=== PATIENT | male | born 1950 | race Caucasian/White ===

== ENCOUNTER 2025-03-21 14:33 | Inpatient (IN) ==
[2025-03-21 15:21] LABS: Hematocrit (blood only) 46.0 % (42.0-52.0); Hemoglobin 15.2 g/dL (14.0-18.0); Immature Granulocytes # (auto) 0.02 K/uL (0.01-0.20); Immature Granulocytes % (auto) 0.2 %; Mean Corpuscular Hemoglobin 29.5 pg (25.0-34.0); Mean Corpuscular Volume 89.1 fL (80.0-100.0); Platelet Count 245 K/uL (130-400); RDW Standard Deviation 45.8 fL (36.4-46.3); Red Blood Count 5.16 M/uL (4.70-6.10); White Blood Count 11.26 K/ul (4.8-10.8)
[2025-03-21 15:38] LABS: Alanine Aminotransferase 22.0 U/L (7-52); Albumin Globulin Ratio 1.5 (0.9-2); Albumin Level 3.9 gm/dl (3.4-5.0); Alkaline Phosphatase 90.0 U/L (34-104); Anion Gap 5.0 (3-11); Bilirubin,Total 1.4 mg/dl (0.2-1.0); Blood Urea Nitrogen 13.0 mg/dl (6-23); Calcium 10.0 mg/dl (8.6-10.3); Carbon Dioxide 31.0 mmol/L (21-32); Chloride 105.0 mmol/L (98-107); Creatinine Clr Calc Pharmacy 81.1 ml/min; Globulin 2.6 gm/dl (2.5-4.0); Glucose 159.0 mg/dl (70-99(Fasting)); Potassium 3.8 mmol/L (3.5-5.1); Sodium 141.0 mmol/L (136-145); Total Protein 6.5 gm/dl (6.0-8.3)
--- NOTE | 2025-03-21 15:45 | Emergency Department Note ---
Impression & Plan DVT of lower limb, acute ED Provider Note NAME: KRISTINA BERMAN AGE: 74 SEX: M : 1950 ARRIVES VIA: Walk-In INFORMANT: Patient, ED PROVIDER(S): Gucci Moore MD CHIEF COMPLAINT: Outpatient referral, DVT MEDICAL DECISION MAKING: Patient presents due to concern for DVT as an outpatient. IV was established and blood work was obtained. Patient's blood work shows a white count of 11 with a normal hemoglobin and platelet count. The patient's kidney function is unremarkable. INR 3.2. There was a discussion between Dipti melendez and Dr. Cisneros after further discussion recommended the patient be admitted and placed on heparin. Heparin ordered by the inpatient service. Discussion w/ other healthcare providers: Dr. Cisneros hematology oncology DAYTON Hinton and Dr. Whittaker Prior /Outside records reviewed: I reviewed part of a DVT ultrasound report which showed no evidence of femoral or popliteal DVT but isolated muscular soleal vein thrombosis seen in the right lower extremity. Differential diagnosis: DVT, limb ischemia, musculoskeletal pain, infection, joint effusion, trauma, lymphedema, idiopathic, CHF, as well as other pathologies. Diagnostics, as interpreted by me: ECG: None Cardiac monitoring: An order was placed for continuous cardiac monitoring. The monitor shows a rate of 89 with sinus rhythm. Patient was placed on pulse oximetry Medical decision rules: None Imaging studies: None HPI: Patient presents due to concern for an abnormal outpatient DVT ultrasound which showed a DVT. The patient states that yesterday he was trying to put his boot on when he felt a pop and a kind of snap in the back of his leg in his calf area. Patient states that he did not think too much of it but did have some pain at that time. The patient states that he went about his day went to bed when he woke up the following morning he noticed some swelling. Patient did have a DVT ultrasound completed and after the result was referred in here. The patient does take Coumadin for a known history of stroke in the past. He states that he is compliant. He denies any chest pains or shortness of breath. Last time he traveled was he drove to [facility] back in January. PAST MEDICAL HISTORY: See Below PAST SURGICAL HISTORY: See Below SOCIAL HISTORY: See Below HOME MEDICATIONS: See Below ALLERGIES: See Below VITALS: See Below PHYSICAL EXAMINATION: GENERAL: NAD, non-toxic. EYE EXAM: Normal conjunctiva. PERRL, no anisocoria and EOM's grossly intact w/o pain. OROPHARYNX: Moist mucus membranes, grossly normal dentition. NECK: Trachea midline, no stridor. Supple, no nuchal rigidity, no adenopathy, non-tender. No signs of meningismus. FROM of the neck with good chin to chest and neck extension. LUNGS: Clear to auscultation. Normal chest wall mechanics. HEART: NSR, no MRG. ABDOMEN: Abdomen soft, non-tender, no masses, no rebound or guarding. BACK: No CVA TTP. SKIN: No rashes and no bruising. UPPER EXTREMITIES: Upper extremities are grossly normal. LOWER EXTREMITIES: Grossly normal, right greater than left lower extremity edema, calf pain present. NEURO EXAM: Awake and alert, follows commands, no obvious facial asymmetry, normal speech, moves all 4 extremities. Past Med/Surg History Problem List (Updated 03/21/25 @ 17:56 by Gucci Moore MD) DVT of lower limb, acute (Acute) Medical History penitentiary current use of anticoagulant therapy HTN (hypertension) PFO (patent foramen ovale) History of CVA (cerebrovascular accident) Dyslipidemia Surgical History No pertinent past surgical history Social History Smoking Status: Never smoker Preferred Language: Mauritanian Feels Safe at Home: Yes Allergies Allergies Allergy/AdvReac Type Severity Reaction Status Date / Time No Known Allergies Allergy Unknown Verified 03/21/25 16:03 Home Meds Home Medications Medication Instructions Recorded Confirmed acetaminophen 500 mg tablet 1,000 mg PO DIRECTED PRN 03/21/25 03/21/25 (Tylenol Extra Strength) PAIN/FEVER aspirin 81 mg tablet,delayed 81 mg PO DAILY 03/21/25 03/21/25 release atorvastatin 80 mg tablet 80 mg PO HS 03/21/25 03/21/25 cholecalciferol (vitamin D3) 50 50 mcg PO DAILY 03/21/25 03/21/25 mcg (2,000 unit) capsule (Vitamin D3) docusate sodium 100 mg capsule 100 mg PO BID PRN Constipation 03/21/25 03/21/25 lisinopril 10 mg tablet 10 mg PO QAM 03/21/25 03/21/25 ajpldmchteav-ldyskduz-[id number] 1 tab PO DAILY 03/21/25 03/21/25 tablet (Multivitamin 50 Plus tablet) sildenafil 100 mg tablet 50 - 100 mg PO DAILY PRN Sexual 03/21/25 03/21/25 Activity warfarin 5 mg tablet 5 mg PO HS 03/21/25 03/21/25 Results & Data (ED) Vital Signs Vital Signs - 24 hr 03/21/25 14:36 03/21/25 17:18 03/21/25 17:30 Temperature 36.7 C Temperature Source Temporal Artery Scan Pulse Rate 102 H 95 H 93 H Pulse Rate from SpO2 Sensor 91 H 92 H Respiratory Rate 18 17 18 Blood Pressure 122/84 Blood Pressure Mean 96 Pulse Oximetry 97 97 96 Oxygen Delivery Method Room Air Room Air Sepsis New/Unexplained Change in Mental Status No Sepsis Action Taken by Nursing No Action Required 03/21/25 17:31 03/21/25 17:46 Temperature Temperature Source Pulse Rate 92 H Pulse Rate from SpO2 Sensor Respiratory Rate Blood Pressure 153/106 H Blood Pressure Mean 116 Pulse Oximetry Oxygen Delivery Method Sepsis New/Unexplained Change in Mental Status Sepsis Action Taken by Assisted Medications Current Medication List: was personally reviewed by me Laboratory Data Attestation: I reviewed the patient's lab results. 03/21/25 15:07 03/21/25 15:07 Lab Results 03/21/25 Range/Units 15:07 WBC 11.26 H (4.8-10.8) K/ul RBC 5.16 (4.70-6.10) M/uL Hgb 15.2 (14.0-18.0) g/dL Hct 46.0 (42.0-52.0) % MCV 89.1 (80.0-100.0) fL MCH 29.5 (25.0-34.0) pg MCHC 33.0 (32.0-36.0) g/dL RDW Std Deviation 45.8 (36.4-46.3) fL RDW Coeff of Yaz 14.1 (11.5-14.5) % Plt Count 245 (130-400) K/uL MPV 10.1 (9.4-12.4) fL Immature Gran % (Auto) 0.2 % Neut % (Auto) 77.3 % Lymph % (Auto) 15.4 % [place] % (Auto) 6.2 % Eos % (Auto) 0.6 % Baso % (Auto) 0.3 % Neut # (Auto) 8.71 H (1.40-6.50) K/uL Lymph # (Auto) 1.73 (1.20-3.40) K/uL [place] # (Auto) 0.70 H (0.11-0.59) K/uL Eos # (Auto) 0.07 (0.00-0.50) K/uL Baso # (Auto) 0.03 (0.00-0.20) K/uL Immature Gran # (Auto) 0.02 (0.01-0.20) K/uL PT 31.5 H (9.0-12.0) Seconds INR 3.2 H (0.9-1.1) APTT 38 H (21-31) Seconds PTT Ratio 1.4 Sodium 141 (136-145) mmol/L Potassium 3.8 (3.5-5.1) mmol/L Chloride 105 (98-107) mmol/L Carbon Dioxide 31 (21-32) mmol/L Anion Gap 5 (3-11) BUN 13 (6-23) mg/dl Creatinine 0.87 (0.6-1.4) mg/dl Est Cr Clr Drug Dosing 81.1 ml/min eGFR 89.43 BUN/Creatinine Ratio 14.9 (10-20) Glucose 159 H (70-99(Fasting)) mg/dl Calcium 10.0 (8.6-10.3) mg/dl Total Bilirubin 1.4 H (0.2-1.0) mg/dl AST 24 (13-39) U/L ALT 22 (7-52) U/L Alkaline Phosphatase 90 (34-104) U/L Total Protein 6.5 (6.0-8.3) gm/dl Albumin 3.9 (3.4-5.0) gm/dl Globulin 2.6 (2.5-4.0) gm/dl Albumin/Globulin Ratio 1.5 (0.9-2) Discharge Plan Visit Data Chief Complaint: Leg Injury/Pain Stated Complaint: CHECKING FOR BLOOD CLOT RT LEG ED Provider: Gucci Moore Discharge Problem: DVT of lower limb, acute Patient Disposition: Admitted As Inpatient Condition: Good Forms Stand Alone Forms: [facility] [employer] Prescriptions Prescriptions: No Action atorvastatin 80 mg tablet 80 mg PO HS aspirin 81 mg Tablet,Delayed Release (Dr/Ec) 81 mg PO DAILY acetaminophen [Tylenol Extra Strength] 500 mg Tablet 1,000 mg PO DIRECTED PRN (Reason: PAIN/FEVER) sildenafil 100 mg tablet 50 - 100 mg PO DAILY PRN (Reason: Sexual Activity) lisinopril 10 mg tablet 10 mg PO QAM warfarin 5 mg tablet 5 mg PO HS docusate sodium 100 mg Capsule 100 mg PO BID PRN (Reason: Constipation) Multivitamin 50 Plus Tablet 1 tab PO DAILY cholecalciferol (vitamin D3) [Vitamin D3] 50 mcg (2,000 unit) Capsule 50 mcg PO DAILY Referrals Referrals: PCP,NO [Physician] - Discharge Problem: DVT of lower limb, acute Qualifiers: Affected thrombotic vein of extremity: calf muscle vein Laterality: right Q ualified Code(s): I82.461 - Acute embolism and thrombosis of right calf muscular vein
[2025-03-21 15:50] LABS: INR 3.2 (0.9-1.1); Partial Thromboplastin Time 38 Seconds (21-31); Prothrombin Time 31.5 Seconds (9.0-12.0)
--- NOTE | 2025-03-21 17:28 | History & Physical Report ---
Date of Service March 21, 2025 Assessment & Plan (1) DVT of lower limb, acute: Plan: 74-year-old male with PMH of CVA in the setting of PFO anticoagulated with Coumadin, HTN, dyslipidemia, and other problems listed below who presented to the ED for evaluation after outpatient ultrasound showed RLE soleal vein thrombosis. Patient has been anticoagulated on Coumadin for the past several years due to hx of CVA in the setting of PFO. Review of outpatient records show therapeutic INRs since September. Last INR check 02/06/25 2.0. INR 3.2 today [address]iscuss[address] case with Dr. Cisneros - recommends IV heparin until INR < 2.0 then transition to Eliquis. Consult placed. Will check troponin and if elevated, will proceed with CTA chest Ensure routine cancer screenings UTD - last colonoscopy 09/2024, last PSA check in 2011 (2) History of CVA (cerebrovascular accident): (3) PFO (patent foramen ovale): Plan: Anticoagulation as above Continue ASA, statin (4) HTN (hypertension): Plan: BP controlled, continue ROGUER Lisinopril DVT PROPHYLAXIS IV Heparin Patient seen in collaboration with Dr. Whittaker. I spent a total of 75 minutes coordinating, documenting, and providing care for this patient excluding time spent in the performance of separately billed services. This included personally reviewing all current laboratories and imaging studies, medication reconciliation, outpatient chart review, and discussion with specialists. History of Present Illness Chief Complaint: right leg swelling Primary Care Provider: Barrie Malcolm MD 74-year-old male with PMH of CVA in the setting of PFO anticoagulated with Coumadin, HTN, dyslipidemia, and other problems listed below who presents to the ED for evaluation after outpatient ultrasound showed RLE soleal vein thrombosis. Patient reports mild pain within the right calf over the past 1 week. Yesterday he was struggling to put on his boot and felt a pulling sensation in the right calf. He noted some mild swelling. Throughout the day and night, the swelling worsened. [facility] and had an outpatient ultrasound that showed RLE soleal vein thrombosis. Patient was referred to the ED for further evaluation. Patient reports compliance with Coumadin without any recent missed doses. Denies any prolonged travel. Patient reports he is a non- smoker and no prior history of blood clots or family history of. Patient states he otherwise had been feeling well recently. Denies chest pain, shortness of breath, palpitations. No lightheadedness, dizziness, diaphoresis, syncopal events. Denies any other recent illnesses, fevers, chills. No abdominal pain, nausea, vomiting, diarrhea. Denies urinary symptoms. In the ED, patient is hemodynamically stable. Case was discussed with on-call capacity planning analyst Dr. Cisneros who recommends IV heparin until INR is less than 2.0 with transition to Eliquis at that time. Allergies Allergy/AdvReac Type Severity Reaction Status Date / Time No Known Allergies Allergy Unknown Verified 03/21/25 16:03 Home Medications Medication Instructions Recorded Confirmed Type acetaminophen 500 mg tablet 1,000 mg PO DIRECTED PRN 03/21/25 03/21/25 History (Tylenol Extra Strength) PAIN/FEVER aspirin 81 mg tablet,delayed 81 mg PO DAILY 03/21/25 03/21/25 History release atorvastatin 80 mg tablet 80 mg PO HS 03/21/25 03/21/25 History cholecalciferol (vitamin D3) 50 50 mcg PO DAILY 03/21/25 03/21/25 History mcg (2,000 unit) capsule (Vitamin D3) docusate sodium 100 mg capsule 100 mg PO BID PRN Constipation 03/21/25 03/21/25 History lisinopril 10 mg tablet 10 mg PO QAM 03/21/25 03/21/25 History ajibwrkylbvj-yuokeutw-hmsbkt 1 tab PO DAILY 03/21/25 03/21/25 History tablet (Multivitamin 50 Plus tablet) sildenafil 100 mg tablet 50 - 100 mg PO DAILY PRN Sexual 03/21/25 03/21/25 History Activity warfarin 5 mg tablet 5 mg PO HS 03/21/25 03/21/25 History Past Med/Surg History Problem List (Updated 03/21/25 @ 17:19 by DAYTON Keane) DVT of lower limb, acute Medical History (Updated 03/21/25 @ 17:19 by DAYTON Keane) 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 HTN (hypertension) PFO (patent foramen ovale) History of CVA (cerebrovascular accident) Dyslipidemia Surgical History (Updated 03/21/25 @ 17:17 by DAYTON Keane) No pertinent past surgical history Social History Smoking Status: Never smoker Preferred Language: Swedish Feels Safe at Home: Yes Physical Exam Constitutional: WD/WN, vitals as above no acute distress Respiratory: normal respiratory effort, lungs clear to auscultation Cardiovascular: Rate/Rhythm: regular rate and regular rhythm Vessels: normal peripheral pulses Extremities: + edema (+2-3 edema RLE) Skin: no rashes, warm and dry Neurologic: no focal motor deficits Psychiatric: A+Ox3, euthymic affect Results & Data Results & Data Vital Signs (Past 12 Hours) Vital Signs Temp Pulse Resp BP Pulse Ox O2 Del Method 03/21/25 14:36 36.7 C 102 H 18 122/84 97 Room Air Laboratory Results Short CBC 03/21/25 Range/Units 15:07 WBC 11.26 H (4.8-10.8) K/ul Hgb 15.2 (14.0-18.0) g/dL Hct 46.0 (42.0-52.0) % Plt Count 245 (130-400) K/uL BMP 03/21/25 15:07 Sodium 141 Potassium 3.8 Chloride 105 Carbon Dioxide 31 BUN 13 Creatinine 0.87 Glucose 159 H Calcium 10.0 Liver Function 03/21/25 Range/Units 15:07 Total Bilirubin 1.4 H (0.2-1.0) mg/dl AST 24 (13-39) U/L ALT 22 (7-52) U/L Alkaline Phosphatase 90 (34-104) U/L Albumin 3.9 (3.4-5.0) gm/dl Code Status & VTE Plan VTE Prophylaxis Plan VTE Prophylaxis will be ordered: No Supervising Physician Co-Signing Physician Notes 74-year-old male with PMH of CVA ISO PFO anticoagulated with Coumadin/compliant with Coumadin per patient, HTN, HLD presents to the ED for evaluation after his outpatient ultrasound showed RLE DVT. Patient reports he had a 2 weeks long vacation to [place]/drove a lot in January. Patient reports he had colonoscopy this year and was told there was no concerns. Patient denies smoking. Patient reports maintaining compliance with Coumadin. Patient denies nausea/vomiting/diarrhea/pain or burning with passing urine/sore throat/cough/chest pain/sob. Patient reported some discomfort in Rt lower extremity since Wednesday, reports LLE swelling since last evening and hence presented to the ED today. Patient reports he is fairly active at home. Labs fairly WNL, WBC mildly elevated/monitor/no signs or symptoms of infection on exam. INR 3.2. Renal function fairly WNL. Case was discussed with capacity planning analyst, plan for IV heparin drip until PT/INR less than 2.0 and then transition to DOAC. f/u hematology on dc. On exam: Patient on room air, R LE swelling with 1-2+ pitting edema, RLE with no pitting edema. Heart/lung/abdomen examination. WNL. Rest of the examination as above. Total time spent independently: 24 minutes. I have seen and examined the patient and have discussed the case with the provider above. I agree with the assessment and plan as stated.
[2025-03-21] MEDS: HEPARIN 25000 UNIT/500 ML D5W 25,000 UNITS/500 ML BAG IV SCH (18:07)
[2025-03-21] MEDS: Heparin IV Adult Wt-Based Standard *NO* INITIAL Bolus Protocol IV STA (18:09)
[2025-03-21] MEDS: ACETAMINOPHEN 325 MG TAB PO PRN (19:23)
--- NOTE | 2025-03-21 19:34 | Ultrasound Report ---
US soft tissue right lower extremity History: Injury Comparison: None Findings/impression: Targeted grayscale and color Doppler ultrasound of the right calf demonstrates generalized subcutaneous edema. There is also a pocket of subcutaneous fluid measuring 1.1 x 1.2 x 0.5 cm. No identified rim or evidence for abscess. There is a small area of increased vascularity in the right calf at the site of injury, that is likely reactive. Electronically signed by Chance Kenney 03-21-2025 7:34 PM
[2025-03-21] MEDS: ATORVASTATIN 40 MG TAB PO SCH (20:22)
[2025-03-22 00:56] LABS: ANTI-Xa, UFH(UnfractionatedHep 0.41 IU/ml (0.3-0.7)
[2025-03-22 07:07] LABS: Hematocrit (blood only) 43.2 % (42.0-52.0); Hemoglobin 14.7 g/dL (14.0-18.0); Mean Corpuscular Hemoglobin 29.9 pg (25.0-34.0); Mean Corpuscular Volume 88.0 fL (80.0-100.0); Platelet Count 226 K/uL (130-400); RDW Standard Deviation 44.9 fL (36.4-46.3); Red Blood Count 4.91 M/uL (4.70-6.10); White Blood Count 10.26 K/ul (4.8-10.8)
[2025-03-22 07:26] LABS: Anion Gap 7.0 (3-11); Blood Urea Nitrogen 16.0 mg/dl (6-23); Calcium 9.6 mg/dl (8.6-10.3); Carbon Dioxide 26.0 mmol/L (21-32); Chloride 107.0 mmol/L (98-107); Creatinine Clr Calc Pharmacy 77.9 ml/min; Glucose 112.0 mg/dl (70-99(Fasting)); Potassium 4.4 mmol/L (3.5-5.1); Sodium 140.0 mmol/L (136-145)
[2025-03-22 07:47] LABS: INR 2.5 (0.9-1.1); Prothrombin Time 24.7 Seconds (9.0-12.0)
[2025-03-22 07:48] LABS: ANTI-Xa, LMWH(Low Molecular Wt 0.59 IU/ML (< 0.10)
[2025-03-22] MEDS: ASPIRIN 81 MG ECTAB PO SCH (08:21)
--- NOTE | 2025-03-22 10:21 | Hospitalist Progress Note ---
<Statement entered by Berlin Gibson, - 03/22/25 14:29> I have seen and examined the patient and have discussed the case with the advance practice provider. I have reviewed the advanced practitioner's documentation, and I agree with, and take responsibility for that plan of care. Patient's history is consistent with acute injury of his lower leg/gastrocnemius muscle. Soleous thrombus most likely reactive due to this acute injury. Extremely low suspicion of failure of Coumadin. Appreciate orthopedic input Continue transition to Eliquis, overall may be simpler plan of care for patient Further plan of care as outlined below I spent a total of 17 minutes coordinating, documenting, and providing care for this patient excluding time spent by another provider/QHP. Date of Service March 22, 2025 Assessment & Plan (1) DVT of lower limb, acute: Plan: This is a 74-year-old male with PMH of CVA in the setting of PFO anticoagulated with Coumadin, HTN, dyslipidemia, and other problems listed below who presented to the ED for evaluation after outpatient ultrasound showed RLE soleal vein thrombosis. Patient has been anticoagulated on Coumadin for the past several years due to hx of CVA in the setting of PFO. Review of outpatient records show therapeutic INRs since September. Last INR check 02/06/25 2.0. Case discussed with Dr. Cisneros on admission- recommends IV heparin until INR < 2.0 then transition to Eliquis. Consult placed INR 3.2 -> 2.5 today (2) Strain of right gastrocnemius muscle: Plan: Traumatic component to RLE edema following "cramping, popping" pain yesterday Consulted ortho due to concern for MSK injury vs tear - feel injury consistent with strain of R gastroc, recommending Teds, elevation and ice. 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 Gibson. I spent a total of 45 minutes coordinating, documenting, and providing care for this patient excluding time spent in the performance of separately billed services or time spent by another provider/QHP. Admission and Anticipated Discharge Date Admission Date: March 21, 2025 Subjective Seen and examined in 262-1. Having discomfort in RLE and swelling. Able to ambulate to the bathroom with some discomfort. No other acute issues this morning. No F/C, lightheadedness, CP, SOB, N/V, abd pain, dysuria, diarrhea or constipation. Review of Systems Review of Systems: At least ten systems reviewed and negative except as noted in the HPI. Physical Exam Physical Exam: Gen: WD/WN, NAD, resting in bed, A&Ox3 HEENT: Normocephalic, atraumatic, mucous membranes moist Lung: Clear to Auscultation bilaterally Heart: Regular rate, regular rhythm, no murmurs, rubs, or gallops Abdomen: Soft, NT, ND +BS x 4 Extremities: + RLE edematous, no warmth. TTP distal calf muscle but full AROM Skin: Warm, no rash Results & Data Results & Data Vital Signs (Past 12 Hours) Vital Signs Temp Pulse Pulse Resp BP BP Pulse Ox 03/22/25 08:20 36.8 C 73 17 130/87 93 03/22/25 08:00 03/22/25 07:28 78 03/22/25 02:56 36.8 C 72 18 119/79 93 03/21/25 23:13 36.8 C 77 18 111/73 94 O2 Del Method 03/22/25 08:20 Room Air 03/22/25 08:00 Room Air 03/22/25 07:28 03/22/25 02:56 Room Air 03/21/25 23:13 Room Air Laboratory Results Short CBC 03/21/25 03/22/25 Range/Units 15:07 06:47 WBC 11.26 H 10.26 (4.8-10.8) K/ul Hgb 15.2 14.7 (14.0-18.0) g/dL Hct 46.0 43.2 (42.0-52.0) % Plt Count 245 226 (130-400) K/uL BMP 03/21/25 03/22/25 15:07 06:47 Sodium 141 140 Potassium 3.8 4.4 Chloride 105 107 Carbon Dioxide 31 26 BUN 13 16 Creatinine 0.87 0.90 Glucose 159 H 112 H Calcium 10.0 9.6 Liver Function 03/21/25 Range/Units 15:07 Total Bilirubin 1.4 H (0.2-1.0) mg/dl AST 24 (13-39) U/L ALT 22 (7-52) U/L Alkaline Phosphatase 90 (34-104) U/L Albumin 3.9 (3.4-5.0) gm/dl Diagnostic Findings Vascular Ultrasound 03/21/25 18:01 US soft tissue right lower extremity History: Injury Comparison: None Findings/impression: Targeted grayscale and color Doppler ultrasound of the right calf demonstrates generalized subcutaneous edema. There is also a pocket of subcutaneous fluid measuring 1.1 x 1.2 x 0.5 cm. No identified rim or evidence for abscess. There is a small area of increased vascularity in the right calf at the site of injury, that is likely reactive. Electronically signed by Chance Kenney 03-21-2025 7:34 PM (1) DVT of lower limb, acute Affected thrombotic vein of extremity: calf muscle vein Laterality: right Qualified Code(s): I82.461 - Acute embolism and thrombosis of right calf muscular vein
--- NOTE | 2025-03-22 11:04 | Orthopedic Consultation ---
<Statement entered by Lebron Manning DO - 03/22/25 15:29> I personally saw and evaluated this patient. He is a 74-year-old male history of CVA, PFO on Coumadin for many years. We are consulted for right calf pain. Patient states that on 03/20/2025 he was putting on a boot, he felt a pop and pain in his lower leg in the calf region. He had some discomfort at that point but it was not severe. He woke up the next morning with significant swelling and pain in his leg. He came to the ER for evaluation. Ultrasound was obtained which showed no evidence of a DVT. Did show a small 1.1 x 1.2 x 0.5 cm fluid collection in the gastroc. Orthopedics was consulted to evaluate for calf pain. The patient currently complains of pain in the midportion of the right calf. It is worse with movement better with rest. He denies any paresthesias or numbness or tingling about the right lower extremity. He denies any significant severe pain. His pain is controlled at baseline. He reports he has never had any history of tendon rupture other than a rotator cuff tear. Physical exam: General: Patient is awake, alert, in no acute distress. Well-developed, well-n ourished. Skin: Skin of the right lower extremity is clean, dry, and intact. There is mild ecchymosis present. He does have 2+ edema in the lower leg which is circumferential in nature. It does extend into the foot. He has no open wounds. Musculoskeletal: Right lower extremity: Range of motion of the knee is 0 to at least 120 degrees flexion. -Strength is 5 out of 5 with resisted plantarflexion and dorsiflexion of the ankle, 5 out of 5 with resisted inversion and eversion of the ankle. EHL and FHL are also 5 out of 5 strength. -He has full range of motion of the foot and toes. Ankle plantarflexion is 30 degrees dorsiflexion is 20 degrees. -He has moderate discomfort with palpation over the midportion of the gastrocnemius. He has no tenderness palpation over the Achilles tendon. There is no palpable defect in the Achilles tendon. He has no tenderness to palpation over the calcaneus or Achilles insertion. -He has normal Owens test. The Achilles tendon was palpated throughout its entirety and was intact without any defect. -Sensation intact to light touch in the L4-S1 dermatomes. -DP and PT pulses are 2+. - There is no pain out of proportion with passive motion of the ankle or toes. - The lower leg compartments are soft and compressible. -Capillary refill is less than 3 seconds in the toes. Impression: Right gastrocnemius partial tear, acute - Physical exam findings were discussed with the patient. The Achilles tendon feels intact on my physical exam, he has an intact Owens test. I have low concern for a rupture of the tendinous portion of the Achilles. I do have a small concern for musculotendinous junction rupture or partial rupture given that this is the area that seems acutely tender. - I would like to obtain an MRI of the right lower leg to evaluate further, to further characterize the injury, and to guide treatment. This has been ordered. - Agree with DONNA hose stocking for compression on the right leg. - Ice and elevate right lower extremity for pain and swelling - I discussed and reviewed with the patient signs and symptoms of compartment syndrome, asked him to please let nursing staff know if he has any of these warning signs so they can page me to evaluate him. - Pending results of MRI patient may weight-bear as tolerated on the right lower extremity. - Recommend physical therapy evaluation, patient may need an assistive device to help with mobilization - He may continue with anticoagulation per the hospitalist team recommendations. - No acute surgical intervention planned at this time, will review results of M RI and further discuss with patient when they are available. Date of Consultation March 22, 2025 Assessment & Plan (1) Strain of right gastrocnemius muscle: The patient was educated regarding today's findings. I placed him in a knee- high Donna stocking for gentle compression. Importance of ice and elevation of the leg was discussed with the patient. Nursing staff will elevate his leg on a pillow. He was reassured that I find no evidence for compartment syndrome at this time. Sensation is intact and there is no significant discomfort with active motion of the ankle and knee. Pulses are good. We reviewed the warning signs for compartment syndrome and he is aware. Option of MRI versus [facility] uloskeletal ultrasound was discussed with the patient. He has already had the inpatient ultrasound confirming a small fluid collection, likely hematoma. I think he would be fine for reevaluation in the office on an outpatient basis and additional musculoskeletal ultrasound can be obtained at that time. Continue with anticoagulation per the hospitalist service recommendations. He is currently on heparin. He was reassured that I do not suspect Achilles tear, patellar tendon tear, quadriceps tendon tear, meniscal tear, hamstring tear, or fracture. Care plan was reviewed with Dr. Manning. History of Present Illness Reason for Consultation: Right gastroc swelling and pain Attending Physician: Berlin Gibson DO History of Present Illness This 74-year-old male with PMH of CVA ISO PFO anticoagulated with Coumadin, HTN, and HLD, is seen today in his room. Orthopedics was consulted for his right calf. The patient states 2 days ago he was putting on a boot and felt a pop in his lower leg. He had some discomfort at that point but it was not severe. He went about his day without issue. Swelling developed in his lower leg yesterday morning. He came to the ED with concern for a DVT. Ultrasound obtained showed no evidence of DVT. He does have a soleal vein thrombus. Soft tissue ultrasound was also obtained. It showed a 1.1 cm x 1.2 cm x 0.5 cm fluid collection in the gastroc. He is on chronic anticoagulation using Coumadin for a previous stroke and patent FO. He states his levels are very well-maintained. Yesterday INR was 3.2. Allergies Allergy/AdvReac Type Severity Reaction Status Date / Time No Known Allergies Allergy Unknown Verified 03/21/25 16:03 Home Medications Medication Instructions Recorded Confirmed Type acetaminophen 500 mg tablet 1,000 mg PO DIRECTED PRN 03/21/25 03/21/25 History (Tylenol Extra Strength) PAIN/FEVER aspirin 81 mg tablet,delayed 81 mg PO DAILY 03/21/25 03/21/25 History release atorvastatin 80 mg tablet 80 mg PO HS 03/21/25 03/21/25 History cholecalciferol (vitamin D3) 50 50 mcg PO DAILY 03/21/25 03/21/25 History mcg (2,000 unit) capsule (Vitamin D3) docusate sodium 100 mg capsule 100 mg PO BID PRN Constipation 03/21/25 03/21/25 History lisinopril 10 mg tablet 10 mg PO QAM 03/21/25 03/21/25 History bxzzsplehmta-cejaqbvi-vslwtu 1 tab PO DAILY 03/21/25 03/21/25 History tablet (Multivitamin 50 Plus tablet) sildenafil 100 mg tablet 50 - 100 mg PO DAILY PRN Sexual 03/21/25 03/21/25 History Activity warfarin 5 mg tablet 5 mg PO HS 03/21/25 03/21/25 History 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 HTN (hypertension) PFO (patent foramen ovale) History of CVA (cerebrovascular accident) Dyslipidemia Surgical History No pertinent past surgical history Social History Smoking Status: Never smoker Hx Alcohol Use: No Hx Substance Use: No Preferred Language: Slovak 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 Laying in bed. Alert and oriented. Skin: Warm and dry with good turgor. No rashes. Mild ecchymosis is present in the right lower leg. He has significant edema present in the lower leg. This is circumferential and includes the tibialis anterior as well as the gastroc. It extends into the foot. No open wounds. No erythema. Musculoskeletal: Right lower extremity evaluation reveals full terminal extension of the knee. Flexion to greater than 120 degrees actively. Strength is 5/5 for resisted knee flexion and extension. It is also 5/5 for resisted plantarflexion and dorsiflexion of the ankle. He has full range of motion of his ankle and toes. There is no discomfort with palpation over the toes, foot, ankle, patella, medial or lateral hamstrings, quadriceps, patellar tendon, or quadriceps tendon. He has no discomfort with palpation around his knee joint line. There is focal discomfort with palpation over the mid body of the gastroc muscle bellies, lateral worse than medial. No palpable defect. Normal Owens test. Achilles tendon is palpated through its entirety and found to be intact and without defect. Neurologic: Gross sensation is intact across each of the dermatomes of the right lower leg by soft touch. Peripheral pulses are 2+. Results & Data Vital Signs (Past 12 Hours) Vital Signs Temp Pulse Pulse Resp BP BP Pulse Ox 03/22/25 08:20 36.8 C 73 17 130/87 93 03/22/25 08:00 03/22/25 07:28 78 03/22/25 02:56 36.8 C 72 18 119/79 93 03/21/25 23:13 36.8 C 77 18 111/73 94 O2 Del Method 03/22/25 08:20 Room Air 03/22/25 08:00 Room Air 03/22/25 07:28 03/22/25 02:56 Room Air 03/21/25 23:13 Room Air Laboratory Results CBC obtained today shows a normal white count of 10.26. H&H of 14.7 and 43.2. Normal platelets. INR today is 2.5. PT 24.7 seconds. Chem panel today shows normal electrolytes. Normal BUN and creatinine. Glucose 112. Normal LFTs. Normal troponin.
--- NOTE | 2025-03-23 01:28 | Magnetic Resonance Report ---
EXAM: MR lower leg RT wo con CLINICAL HISTORY: Rule out achilles tendon rupture TECHNIQUE: Multiplanar, multi-echo MRI of the right leg was performed without administration of intravenous contrast. COMPARISON: None. FINDINGS: Muscles: The soleus muscle shows a rather defined hematoma of 10x4.2x2.6 cm along its craniocaudal and axial diameter, it elicits a heterogeneous signal with predominantly isointense signal in T1 and high T2 signal in T2/STIR with fluid /dluid level, distinct soleus tendon The medial head of the gastrocnemius muscle is diffusely swollen, showing a high T2 signal with an aliner band of high T1 The lateral head of gastrocnemius and the peroneus brevious muscle also show subtly elevated signal obvious periarticular soft tissue edema more obvious at the posterior leg compartment. A rather well-defined fat intensity lesion seen related to the medial aspect of the femur measures 5x2.5cm, likelya lipoma Bones: Normal alignment of the tibia and fibula. No fractures or dislocations. No lytic or sclerotic lesions. No bone marrow edema or contusions. Joints: mild ankle and knee joint arthritic changes with denudation of the opposed articular surfaces mild ankle and knee joint effusion. Elevated signal of the anterior cruciate ligament subtle tenosynovitis of the peroneus longus and brevis, as well as flexor hallicus longus Intact Achilles tendon with subtle elevated signal Neurovascular Structures: Normal appearance of the visualized neurovascular structures. No evidence of compression or abnormal signal changes. IMPRESSION: - Features of intramuscular soleus muscle hematoma with an indistinct tendon suggestive of its rupture - Grade 2 sprain of the medial head of the gastrocnemius muscle - Grade 1 sprain of the lateral head of the gastrocnemius and the peroneus brevious muscle - Obvious periarticular soft tissue edema more obvious at the posterior leg compartment, denoting soft tissue contusion. - Medial knee compartment subcutaneous fat intensity lesion likely lipoma. - Intact Achilles tendon with subtle tendopathy. - ACL sprain - Subtle tenosynovitis of the peroneus longus and brevis, as well as the flexor hallicus longus tendon. Electronically signed by Roberto Bonilla 03-23-2025 01:28 AM
[2025-03-23 06:31] LABS: Hematocrit (blood only) 42.0 % (42.0-52.0); Hemoglobin 14.2 g/dL (14.0-18.0); Mean Corpuscular Hemoglobin 29.9 pg (25.0-34.0); Mean Corpuscular Volume 88.4 fL (80.0-100.0); Platelet Count 191 K/uL (130-400); RDW Standard Deviation 45.5 fL (36.4-46.3); Red Blood Count 4.75 M/uL (4.70-6.10); White Blood Count 10.09 K/ul (4.8-10.8)
[2025-03-23 06:49] LABS: Anion Gap 7.0 (3-11); Blood Urea Nitrogen 20.0 mg/dl (6-23); Calcium 9.5 mg/dl (8.6-10.3); Carbon Dioxide 26.0 mmol/L (21-32); Chloride 107.0 mmol/L (98-107); Creatinine Clr Calc Pharmacy 66.2 ml/min; Glucose 98.0 mg/dl (70-99(Fasting)); Potassium 3.8 mmol/L (3.5-5.1); Sodium 140.0 mmol/L (136-145)
[2025-03-23 07:00] LABS: ANTI-Xa, UFH(UnfractionatedHep 0.49 IU/ml (0.3-0.7)
[2025-03-23 07:03] LABS: INR 1.6 (0.9-1.1); Prothrombin Time 16.5 Seconds (9.0-12.0)
[2025-03-23 07:39] VITALS: PULSE 80; RESP 18; TEMP 98.1; O2SAT 97
[2025-03-23] MEDS: APIXABAN 5 MG TABLET PO ONE (08:43)
--- NOTE | 2025-03-23 10:07 | Orthopedic Progress Note ---
<Statement entered by Lebron Manning, DO - 03/23/25 12:02> I personally saw and evaluated the patient today. He is doing well. His pain is controlled. He does not have any significant pain at rest. States that his right leg is still swollen. Pain seems to be worse with movement better with rest. Denies any numbness or tingling of the right lower extremity. Physical exam: General: Patient is awake, alert, no acute distress. Answers questions appropriately. Afebrile with vital signs stable. Musculoskeletal: Right lower extremity: - 3+ edema noted about the right lower leg and foot. Lower leg compartments are soft and compressible. Skin about the right lower extremity is clean, dry, intact. There are no wounds, lacerations, or abrasions. Patient is able to actively plantar and dorsiflex ankle and great toe with 4/5 strength. The patient has no significant pain with passive ankle dorsiflexion/plantarflexion, great toe flexion or extension Sensation is intact to light touch in the L4-S1 dermatomes DP and PT pulses are palpable No palpable defect of gastrocnemius. Tender to palpation over the midportion of the calf and soleus muscle. Assessment and plan: Impression: Right soleus muscle tear with strain of gastrocnemius muscle Continue DONNA stockings Continue ice and elevation right lower extremity for pain and swelling -Recommend CAM boot for comfort with ambulation Continue pain control with p.o. medication Patient will need outpatient physical therapy for modalities for pain, range of motion, and strengthening -Follow-up with me in 2 to 3 weeks as an outpatient Agree with transition to a DOAC, defer management to medicine I reviewed with the patient signs symptoms of compartment syndrome including pain, paresthesias, pain with passive motion, increasing swelling, discoloration of the foot. Discussed with him that if he has any of these he should return to the emergency department for immediate evaluation. Date of Service March 23, 2025 Assessment & Plan (1) Strain of right gastrocnemius muscle: Plan: Donna stocking use Ice and elevate MRI shows soleus tear and underlying hematoma Pain control with p.o. medication Patient will most likely need physical therapy for his right lower extremity Follow-up at [facility] orthopedics with Dr. Manning in 2 weeks Discharge instructions will be placed and follow-up will be sent to teams. Patient may need ambulatory assistive device to help with mobility. Patient is currently on Coumadin and aspirin due to previous DVT Admission and Anticipated Discharge Date Admission Date: March 21, 2025 Subjective This 74-year-old male seen today for follow-up of right lower leg swelling and calf pain. MRI shows a tear of his solea's as well as that hematoma underlying the musculocutaneous junction. Patient states that the hospitalist removed his Donna stocking because it was causing his toes to become dusky. He states that he is still elevating and icing which seems to help. He localizes most of his pain over the midportion of the calf. Currently he denies chest pain, shortness of breath, fever, chills, sweats, nausea, vomiting, diarrhea or difficulty voiding. He has no complaint of numbness or tingling in his right lower extremity. Review of Systems Review of Systems: All systems reviewed & are unremarkable except as noted in Subjective Physical Exam Physical Exam: Right lower leg. Patient has 1+ pitting edema of the right lower extremity. He is able to perform an active straight leg raise test and actively dorsi and plantarflex his foot. He is able to detect light sensation to touch over the pads of all digits. His peripheral pulses are 2+. He does have tenderness to palpation over the midportion of the calf near the musculotendinous junction of the soeus. He also has some slight discomfort to palpation over the medial and lateral heads of the gastrocnemius. Owens's test is negative. There is no erythema or ecchymosis. There is no warmth. Knee range of motion is full. Patient is neurovascularly intact in the right lower extremity. Results & Data Vital Signs (Past 12 Hours) Vital Signs Temp Pulse Pulse Resp BP BP Pulse Ox 03/23/25 07:38 36.7 C 80 18 145/63 H 97 03/23/25 07:26 76 03/23/25 03:40 36.9 C 74 16 122/82 91 03/23/25 00:50 74 03/22/25 23:33 36.8 C 70 18 138/96 94 O2 Del Method 03/23/25 07:38 Room Air 03/23/25 07:26 03/23/25 03:40 Room Air 03/23/25 00:50 03/22/25 23:33 Room Air Diagnostic Findings Laboratory Results WBC 10.09 K/ul (4.8-10.8) 03/23/25 05:46 RBC 4.75 M/uL (4.70-6.10) 03/23/25 05:46 Hgb 14.2 g/dL (14.0-18.0) 03/23/25 05:46 Hct 42.0 % (42.0-52.0) 03/23/25 05:46 MCV 88.4 fL (80.0-100.0) 03/23/25 05:46 MCH 29.9 pg (25.0-34.0) 03/23/25 05:46 MCHC 33.8 g/dL (32.0-36.0) 03/23/25 05:46 RDW Std Deviation 45.5 fL (36.4-46.3) 03/23/25 05:46 RDW Coeff of Yaz 14.0 % (11.5-14.5) 03/23/25 05:46 Plt Count 191 K/uL (130-400) 03/23/25 05:46 MPV 10.9 fL (9.4-12.4) 03/23/25 05:46 Immature Gran % (Auto) 0.2 % 03/21/25 15:07 Neut % (Auto) 77.3 % 03/21/25 15:07 Lymph % (Auto) 15.4 % 03/21/25 15:07 Grundy % (Auto) 6.2 % 03/21/25 15:07 Eos % (Auto) 0.6 % 03/21/25 15:07 Baso % (Auto) 0.3 % 03/21/25 15:07 Neut # (Auto) 8.71 K/uL (1.40-6.50) H 03/21/25 15:07 Lymph # (Auto) 1.73 K/uL (1.20-3.40) 03/21/25 15:07 Grundy # (Auto) 0.70 K/uL (0.11-0.59) H 03/21/25 15:07 Eos # (Auto) 0.07 K/uL (0.00-0.50) 03/21/25 15:07 Baso # (Auto) 0.03 K/uL (0.00-0.20) 03/21/25 15:07 Immature Gran # (Auto) 0.02 K/uL (0.01-0.20) 03/21/25 15:07 PT 16.5 Seconds (9.0-12.0) H 03/23/25 05:46 INR 1.6 (0.9-1.1) H 03/23/25 05:46 APTT 38 Seconds (21-31) H 03/21/25 15:07 PTT Ratio 1.4 03/21/25 15:07 Heparin Anti-Xa, LM Wt 0.59 IU/ML (< 0.10) 03/22/25 06:47 Heparin Anti-Xa, Unfract 0.49 IU/ml (0.3-0.7) 03/23/25 05:46 Sodium 140 mmol/L (136-145) 03/23/25 05:46 Potassium 3.8 mmol/L (3.5-5.1) 03/23/25 05:46 Chloride 107 mmol/L (98-107) 03/23/25 05:46 Carbon Dioxide 26 mmol/L (21-32) 03/23/25 05:46 Anion Gap 7 (3-11) 03/23/25 05:46 BUN 20 mg/dl (6-23) 03/23/25 05:46 Creatinine 1.06 mg/dl (0.6-1.4) 03/23/25 05:46 Est Cr Clr Drug Dosing 66.2 ml/min 03/23/25 05:46 eGFR 72.73 03/23/25 05:46 BUN/Creatinine Ratio 18.9 (10-20) 03/23/25 05:46 Glucose 98 mg/dl (70-99(Fasting)) 03/23/25 05:46 Calcium 9.5 mg/dl (8.6-10.3) 03/23/25 05:46 Total Bilirubin 1.4 mg/dl (0.2-1.0) H 03/21/25 15:07 AST 24 U/L (13-39) 03/21/25 15:07 ALT 22 U/L (7-52) 03/21/25 15:07 Alkaline Phosphatase 90 U/L (34-104) 03/21/25 15:07 Troponin I High Sens 6.9 pg/ml (0-20) 03/21/25 17:59 Total Protein 6.5 gm/dl (6.0-8.3) 03/21/25 15:07 Albumin 3.9 gm/dl (3.4-5.0) 03/21/25 15:07 Globulin 2.6 gm/dl (2.5-4.0) 03/21/25 15:07 Albumin/Globulin Ratio 1.5 (0.9-2) 03/21/25 15:07 Impressions Vascular Ultrasound 03/21/25 18:01 US soft tissue right lower extremity History: Injury Comparison: None Findings/impression: Targeted grayscale and color Doppler ultrasound of the right calf demonstrates generalized subcutaneous edema. There is also a pocket of subcutaneous fluid measuring 1.1 x 1.2 x 0.5 cm. No identified rim or evidence for abscess. There is a small area of increased vascularity in the right calf at the site of injury, that is likely reactive. Electronically signed by Chance Kenney 03-21-2025 7:34 PM Lower Extremity MRI 03/22/25 15:08 EXAM: MR lower leg RT wo con CLINICAL HISTORY: Rule out achilles tendon rupture TECHNIQUE: Multiplanar, multi-echo MRI of the right leg was performed without administration of intravenous contrast. COMPARISON: None. FINDINGS: Muscles: The soleus muscle shows a rather defined hematoma of 10x4.2x2.6 cm along its craniocaudal and axial diameter, it elicits a heterogeneous signal with predominantly isointense signal in T1 and high T2 signal in T2/STIR with fluid /dluid level, distinct soleus tendon The medial head of the gastrocnemius muscle is diffusely swollen, showing a high T2 signal with an aliner band of high T1 The lateral head of gastrocnemius and the peroneus brevious muscle also show subtly elevated signal obvious periarticular soft tissue edema more obvious at the posterior leg compartment. A rather well-defined fat intensity lesion seen related to the medial aspect of the femur measures 5x2.5cm, likelya lipoma Bones: Normal alignment of the tibia and fibula. No fractures or dislocations. No lytic or sclerotic lesions. No bone marrow edema or contusions. Joints: mild ankle and knee joint arthritic changes with denudation of the opposed articular surfaces mild ankle and knee joint effusion. Elevated signal of the anterior cruciate ligament subtle tenosynovitis of the peroneus longus and brevis, as well as flexor hallicus longus Intact Achilles tendon with subtle elevated signal Neurovascular Structures: Normal appearance of the visualized neurovascular structures. No evidence of compression or abnormal signal changes. IMPRESSION: - Features of intramuscular soleus muscle hematoma with an indistinct tendon suggestive of its rupture - Grade 2 sprain of the medial head of the gastrocnemius muscle - Grade 1 sprain of the lateral head of the gastrocnemius and the peroneus brevious muscle - Obvious periarticular soft tissue edema more obvious at the posterior leg compartment, denoting soft tissue contusion. - Medial knee compartment subcutaneous fat intensity lesion likely lipoma. - Intact Achilles tendon with subtle tendopathy. - ACL sprain - Subtle tenosynovitis of the peroneus longus and brevis, as well as the flexor hallicus longus tendon. Electronically signed by Roberto Bonilla 03-23-2025 01:28 AM
--- NOTE | 2025-03-23 11:32 | Discharge Summary ---
<Statement entered by Berlin Gibson DO - 03/23/25 14:15> I have seen and examined the patient and have discussed the case with the advance practice provider. I have reviewed the advanced practitioner's documentation, and I agree with, and take responsibility for that plan of care. Reviewed MRI report. Suspect overall presentation and findings are consistent with trauma to the lower extremity. Low suspicion that this is a Coumadin failure. Discharge plan as outlined below I spent a total of 17 minutes coordinating, documenting, and providing care for this patient excluding time spent by another provider/QHP. Discharge Summary Date of Service March 23, 2025 Principal Dx & Hospital Course #1 = Principal Diagnosis (1) DVT of lower limb, acute: This is a 74-year-old male with PMH of CVA in the setting of PFO anticoagulated with Coumadin, HTN, dyslipidemia, and other problems listed below who presented to the ED for evaluation after outpatient ultrasound showed RLE soleal vein thrombosis. Patient has been anticoagulated on Coumadin for the past several years due to hx of CVA in the setting of PFO. Review of outpatient records show therapeutic INRs since September Case discussed with Dr. Cisneros on admission- recommends IV heparin until INR < 2.0 then transition to Eliquis 10 mg p.o. twice daily x 7 days followed by 5 mg twice daily Transitioned to Eliquis this morning Recommend age-appropriate malignancy screening, PCP follow up (2) Strain of right gastrocnemius muscle: Traumatic component to RLE edema following "cramping, popping" pain yesterday Consulted ortho due to concern for MSK injury vs tear - feel injury consistent with strain of R gastroc, recommending Teds, elevation and ice LE MRI features of intramuscular soleus muscle hematoma with an indistinct tendon suggestive of its rupture, sprain of the medial and lateral head of the gastrocnemius muscle VSS, hgb remains unchanged at 14 Weight bearing as tolerated - PT evaluated and recommending rolling walker and outpatient therapy, safe to return home Ortho coordinated outpatient follow up with Dr. Manning of [facility] - 04/10/25 at 10:30 a.m. Continue eulogio stocking use, ice and elevation of R leg Waiting to be fitted with CAM boot this afternoon prior to dc (3) History of CVA (cerebrovascular accident): (4) PFO (patent foramen ovale): Anticoagulation as above Continue ASA, statin (5) HTN (hypertension): BP controlled, continue FIRER LOW PRESSURE Lisinopril Patient seen in collaboration with Dr. Gibson. Notes For Next Care Provider Darius rhodes Medication Changes From Visit Eliquis 10mg x 7 days then continue 5mg BID Admission HPI Per Admitting Provider 74-year-old male with PMH of CVA in the setting of PFO anticoagulated with Coumadin, HTN, dyslipidemia, and other problems listed below who presents to the ED for evaluation after outpatient ultrasound showed RLE soleal vein thrombosis. Patient reports mild pain within the right calf over the past 1 week. Yesterday he was struggling to put on his boot and felt a pulling sensation in the right calf. He noted some mild swelling. Throughout the day and night, the swelling worsened. Patient was seen at [facility] today and had an outpatient ultrasound that showed RLE soleal vein thrombosis. Patient was referred to the ED for further evaluation. Patient reports compliance with Coumadin without any recent missed doses. Denies any prolonged travel. Patient reports he is a non- smoker and no prior history of blood clots or family history of. Patient states he otherwise had been feeling well recently. Denies chest pain, shortness of breath, palpitations. No lightheadedness, dizziness, diaphoresis, syncopal events. Denies any other recent illnesses, fevers, chills. No abdominal pain, nausea, vomiting, diarrhea. Denies urinary symptoms. In the ED, patient is hemodynamically stable. Case was discussed with on-call archivist Dr. Cisneros who recommends IV heparin until INR is less than 2.0 with transition to Eliquis at that time. Admission Exam Per Admitting Provider Constitutional: WD/WN, vitals as above no acute distress Respiratory: normal respiratory effort, lungs clear to auscultation Cardiovascular: Rate/Rhythm: regular rate and regular rhythm Vessels: normal peripheral pulses Extremities: + edema (+2-3 edema RLE) Skin: no rashes, warm and dry Neurologic: no focal motor deficits Psychiatric: A+Ox3, euthymic affect Discharge Exam Gen: WD/WN, NAD, resting in bed, A&Ox3 HEENT: Normocephalic, atraumatic, mucous membranes moist Lung: Clear to Auscultation bilaterally Heart: Regular rate, regular rhythm, no murmurs, rubs, or gallops Abdomen: Soft, NT, ND +BS x 4 Extremities: + RLE edematous, no warmth. TTP distal calf muscle but full AROM, eulogio hose in place Skin: Warm, no rash Updated Medication List Medication Instructions Recorded Confirmed Type acetaminophen 500 mg tablet 1,000 mg PO DIRECTED PRN 03/21/25 03/21/25 History (Tylenol Extra Strength) PAIN/FEVER aspirin 81 mg tablet,delayed 81 mg PO DAILY 03/21/25 03/21/25 History release atorvastatin 80 mg tablet 80 mg PO HS 03/21/25 03/21/25 History cholecalciferol (vitamin D3) 50 50 mcg PO DAILY 03/21/25 03/21/25 History mcg (2,000 unit) capsule (Vitamin D3) docusate sodium 100 mg capsule 100 mg PO BID PRN Constipation 03/21/25 03/21/25 History lisinopril 10 mg tablet 10 mg PO QAM 03/21/25 03/21/25 History [id number] 1 tab PO DAILY 03/21/25 03/21/25 History tablet (Multivitamin 50 Plus tablet) sildenafil 100 mg tablet 50 - 100 mg PO DAILY PRN Sexual 03/21/25 03/21/25 History Activity apixaban 5 mg (74 tabs) tablets in 5 mg PO BID #74 ea 03/23/25 Rx a dose pack (Eliquis) Hospital Stay Data Consultations 03/21/25 15:57 ED Decision to Admit Stat 03/21/25 19:14 Consult Hematology Routine 03/22/25 09:26 Consult Orthopedic Surgery Routine Diagnostic Imagining Performed 03/21/25 18:01 US extremity non-vascular ltd Routine 03/22/25 15:08 MRI Lower Leg [MR lower leg RT wo con] Stat Pending Results Patient Have Any Pending Studies at Discharge: No Discharge Instructions Given to Patient (Per Discharging Provider) MEDICATION CHANGES: NEW: Eliquis 10mg x 7 days and then continue 5mg twice a day PENDING TEST RESULTS: None RECOMMENDATIONS FOR FOLLOW-UP: Follow up with PCP as scheduled. Continue eulogio stocking use, ice and elevation of R leg as instructed below. Follow up with Dr. Manning of [facility] (Dr. Manning on 04/10/25 at 10:30 a.m.) Continue medication regimen as scheduled aside from changes noted above. OTHER INSTRUCTIONS: Return to Emergency Department if you have any: -Severe right leg pain -Weakness in the right leg -Skin discoloration other than bruising -Numbness or tingling in the right leg or foot Seek medical attention if you have: * temperature above 101 * chest pain or trouble breathing * abdominal pain, nausea, vomiting * diarrhea, dark stools or bloody stools * any unanswered questions or concerns Call 911 if symptoms are severe. Please take good care of yourself. Call if you have any questions or problems. You can reach a [facility] hospitalist on duty at [facility] 24 hours a day by calling [phone]. Total Time Total Time Spent Total Time Spent (In Minutes): 60
[2025-03-23 11:51] VITALS: BP 122/82
--- NOTE | 2025-03-23 11:56 | Oncology Consultation ---
Date of Consultation March 23, 2025 Assessment & Plan (1) DVT of lower limb, acute: Plan -Patient developed Lower extremity DVT while therapeutic on Coumadin with INR of 3.2 representing Coumadin failure. INR today is 1.6. Recommend starting Eliquis 10 mg p.o. twice daily x 7 days followed by 5 mg twice daily. Recommend age-appropriate malignancy screening. History of Present Illness Reason for Consultation: DVT - failed Coumadin Attending Physician: Berlin Gibson DO History of Present Illness 74-year-old gentleman with history of CVA in the setting of PFO anticoagulated with Coumadin, hypertension, hyperlipidemia. Presented to the ER after outpatient ultrasound had revealed right lower extremity soleal vein thrombosis. INR in the ER was 3.2. He was placed on heparin drip. Allergies Allergy/AdvReac Type Severity Reaction Status Date / Time No Known Allergies Allergy Unknown Verified 03/21/25 16:03 Home Medications Medication Instructions Recorded Confirmed Type acetaminophen 500 mg tablet 1,000 mg PO DIRECTED PRN 03/21/25 03/21/25 History (Tylenol Extra Strength) PAIN/FEVER aspirin 81 mg tablet,delayed 81 mg PO DAILY 03/21/25 03/21/25 History release atorvastatin 80 mg tablet 80 mg PO HS 03/21/25 03/21/25 History cholecalciferol (vitamin D3) 50 50 mcg PO DAILY 03/21/25 03/21/25 History mcg (2,000 unit) capsule (Vitamin D3) docusate sodium 100 mg capsule 100 mg PO BID PRN Constipation 03/21/25 03/21/25 History lisinopril 10 mg tablet 10 mg PO QAM 03/21/25 03/21/25 History [id number] 1 tab PO DAILY 03/21/25 03/21/25 History tablet (Multivitamin 50 Plus tablet) sildenafil 100 mg tablet 50 - 100 mg PO DAILY PRN Sexual 03/21/25 03/21/25 History Activity apixaban 5 mg tablet (Eliquis) 5 mg PO BID #60 tabs 03/23/25 Rx Patient History Medical History [facility] current use of anticoagulant therapy HTN (hypertension) PFO (patent foramen ovale) History of CVA (cerebrovascular accident) Dyslipidemia Surgical History No pertinent past surgical history Social History Smoking Status: Never smoker Hx Alcohol Use: No Hx Substance Use: No Preferred Language: Syrian Communication Ability: Effective Segmental Paving Supervisor Required: No Beliefs That Will Affect Care: None Current Living Situation: Alone Current Living Situation Comment: home alone Feels Safe at Home: Yes Assistive Devices: None Results & Data Vital Signs (Past 12 Hours) Vital Signs Temp Pulse Pulse Resp BP BP Pulse Ox 03/23/25 11:50 36.7 C 80 18 145/63 H 122/82 97 03/23/25 07:38 36.7 C 80 18 145/63 H 97 03/23/25 07:26 76 03/23/25 03:40 36.9 C 74 16 122/82 91 03/23/25 00:50 74 O2 Del Method 03/23/25 11:50 03/23/25 07:38 Room Air 03/23/25 07:26 03/23/25 03:40 Room Air 03/23/25 00:50 (1) DVT of lower limb, acute Affected thrombotic vein of extremity: calf muscle vein Laterality: right Qualified Code(s): I82.461 - Acute embolism and thrombosis of right calf muscular vein
== END 2025-03-23 14:42 | disposition home or self-care (01) | DRG 300 ==
LOC: ED 14:33 → SUATTDRO 16:51 → 2W 16:51